=== PATIENT | female | born 1970 | race Caucasian/White ===

== ENCOUNTER → 2022-03-23 | Outpatient (CLI) | payer OTHER ==
[2022-03-23 10:20] LABS: African American GFR (CKD) >90 (>60 ml/min/1.73 sqM); Blood Urea Nitrogen 12 mg/dL (7-17); Non-African American GFR(CKD) >90 (>60 ml/min/1.73 sqM)
--- NOTE | 2022-03-23 14:15 | CT ---
EXAMINATION TYPE: CT abdomen pelvis w con DATE OF EXAM: 03/23/2022 COMPARISON: None HISTORY: right sided abdominal pain CT DLP: 1990.1 mGycm Automated exposure control for dose reduction was used. TECHNIQUE: Helical acquisition of images was performed from the lung bases through the pelvis. CONTRAST: Performed without Oral Contrast and with IV Contrast, patient injected with 100 mL of Isovue 300. FINDINGS: Visualized lung bases are clear. The gallbladder is normal and there are no gallstones, wall thickening, pericholecystic fluid or dist ention. There is no biliary ductal dilatation. There is no focal mass or organomegaly involving the liver, pancreas, spleen or adrenal glands. There is diffuse fatty infiltration of the liver. . The caliber of the abdominal aorta is normal and there is no retroperitoneal adenopathy or hemorrhage . The kidneys perfuse symmetrically and rapidly and there is no solid renal mass or hydronephrosis. The bowel loops are normal in caliber and there is no evidence of dilatation or obstruction. No infla mmatory changes are identified in the bowel wall or mesentery. The appendix is identified and is norm al. There is no free intraperitoneal air or fluid. There is a small periumbilical hernia containing o nly fat. There is no pelvic mass or adenopathy. The uterus is bulky and there are scattered calcifications wit hin it consistent with a fibroid uterus. No adnexal masses are seen and there is no pelvic adenopathy . The osseous structures are intact. IMPRESSION: 1. Fibroid uterus. 2. Fatty infiltration of the liver. 3. No acute changes within the abdomen or pelvis. 4. Small periumbilical hernia containing only fat.
== END | disposition home or self-care (01) ==
LOC: RADCTMAIN 09:10
PROVIDERS: ATTEND Family Medicine
DX: D25.9 Leiomyoma of uterus, unspecified (principal); K76.0 Fatty (change of) liver, not elsewhere classified; K42.9 Umbilical hernia without obstruction or gangrene
CPT/HCPCS: 82565; 84520; 74177; 36415; Q9967

== ENCOUNTER → 2022-04-10 | Outpatient (CLI) | payer OTHER ==
--- NOTE | 2022-04-11 10:28 | MM ---
Reason for Exam: Screening (asymptomatic). Last mammogram was performed 9 year(s) and 2 month(s) ago. Patient History: Menarche at age 11. First Full-Term at age 33. Late child-bearing (after 30). Postmenopausal. Stereotactic Core Biopsy on the Right side. Risk Values: Priya 5 year model risk: 1.9%. NCI Lifetime model risk: 13.3%. Prior Study Comparison: 01/14/2006 Bilateral Screening Mammogram, [facility]. 02/09/2013 Bilateral Diagnostic Mammogram, [facility]. Tissue Density: The breast tissue is heterogeneously dense. This may lower the sensitivity of mammography. Findings: Analyzed By CAD. Biopsy clip right breast redemonstrated. Increasing grouped faint regional calcifications in the right breast upper outer aspect noted. Focal asymmetry in the middle depth upper aspect left breast were prominent from prior. Overall Assessment: Incomplete: need additional imaging evaluation, BI-RAD 0 Management: Diagnostic Mammogram of the right breast. Diagnostic Breast Ultrasound of the left breast. Further workup both breasts now. Targeted ultrasound left breast upper-outer quadrant. Additional spot identification and true lateral view right breast. Electronically signed and approved by: Lico Hi M.D.
== END | disposition home or self-care (01) ==
LOC: RADMAMWWP 08:39
PROVIDERS: ATTEND Family Medicine
DX: Z12.31 Encounter for screening mammogram for malignant neoplasm of breast (principal); Z78.0 Asymptomatic menopausal state
CPT/HCPCS: 77067

== ENCOUNTER → 2022-04-19 | Outpatient (CLI) | payer OTHER ==
--- NOTE | 2022-04-19 11:50 | USB ---
Reason for Exam: Additional evaluation requested from abnormal screening. Last screening mammogram was performed less than 1 month ago. Patient History: Menarche at age 11. First Full-Term at age 33. Late child-bearing (after 30). Postmenopausal. Stereotactic Core Biopsy on the Right side. Risk Values: Priya 5 year model risk: 1.9%. NCI Lifetime model risk: 13.3%. Prior Study Comparison: 01/14/2006 Bilateral Screening Mammogram, [facility]. 02/09/2013 Bilateral Diagnostic Mammogram, [facility]. 04/10/2022 Bilateral MG screening mammo w CAD, [facility]. Tissue Density: Right: The breast tissue is extremely dense which could obscure a lesion on mammography. Findings: Analyzed By CAD. Mammogram Focal asymmetries in the upper outer aspect right breast. Multiple punctate calcifications are better visualized on the current examination. These regional calcifications may be benign, short-term follow-up is recommended. No discrete suspicious underlying spiculated or lobular masses evident. Core marker is evident within the right breast. There is extremely dense tissue through the left breast in an asymmetric pattern with the right. Technique: Method: Targeted. Findings: The upper outer quadrant of the left breast, the axilla of the left breast and the retroareolar of the left breast were scanned. Small cluster of cysts may be present at the 2:00 position. Discrete mass is not identified. No suspicious solid lesion. Overall Assessment: Probably benign, BI-RAD 3 Assessment: MG 3D work up w/cad RT - Right: Probably benign, BI-RAD 3. US breast workup limited LT - Left: Probably benign, BI-RAD 3. Management: Diagnostic Mammogram of both breasts in 6 months. Diagnostic Breast Ultrasound of the left breast in 6 months. A clinical breast exam by your physician is recommended on an annual basis and results should be correlated with mammographic findings. Results were given to the patient verbally at the time of exam. Electronically signed and approved by: Avila Fishman D.O. Radiologis
== END | disposition home or self-care (01) ==
LOC: RADMAMWWP 10:11
PROVIDERS: ATTEND Family Medicine
DX: R92.1 Mammographic calcification found on diagnostic imaging of breast (principal); N60.02 Solitary cyst of left breast; Z78.0 Asymptomatic menopausal state
CPT/HCPCS: 77065; 76642; G0279; 77061

== ENCOUNTER → 2023-03-19 | Outpatient (CLI) | payer OTHER ==
--- NOTE | 2023-03-19 09:21 | MM ---
Reason for Exam: Follow-up at short interval from prior study. Last screening mammogram was performed 11 month(s) ago. Patient History: Menarche at age 11. First Full-Term at age 33. Late child-bearing (after 30). Postmenopausal. Stereotactic Core Biopsy on the Right side. Risk Values: Priya 5 year model risk: 1.9%. NCI Lifetime model risk: 13.1%. Prior Study Comparison: 02/09/2013 Bilateral Diagnostic Mammogram, [facility]. 04/10/2022 Bilateral MG screening mammo w CAD, [facility]. 04/19/2022 Right MG 3D work up w/cad RT, [facility]. 04/19/2022 Left US breast workup limited , [facility]. Tissue Density: The breast tissue is heterogeneously dense. This may lower the sensitivity of mammography. Findings: Analyzed By CAD. Microclip right breast from prior biopsy. Multiple bilateral asymmetric densities and coped and regional calcifications remain unchanged for nearly a year. Additional nodularity in the left breast remains unchanged for nearly a year. One of the areas of nodularity laterally on the left corresponds to a mole. Additional one-year follow-up is recommended. No significant change from last year. Overall Assessment: Incomplete: need additional imaging evaluation, BI-RAD 0 Management: Diagnostic Breast Ultrasound of the left breast. Electronically signed and approved by: Hamida Simon M.D. Radiologist
--- NOTE | 2023-03-19 09:47 | USB ---
Reason for Exam: Follow-up at short interval from prior study. Patient History: Menarche at age 11. First Full-Term at age 33. Late child-bearing (after 30). Postmenopausal. Stereotactic Core Biopsy on the Right side. Risk Values: Priya 5 year model risk: 1.9%. NCI Lifetime model risk: 13.1%. Technique: Method: Whole Breast Handheld. Prior Study Comparison: 02/09/2013 Bilateral Diagnostic Mammogram, [facility]. 04/10/2022 Bilateral MG screening mammo w CAD, [facility]. 04/19/2022 Right MG 3D work up w/cad RT, [facility]. Findings: The whole breast of the left breast, the axilla of the left breast and the retroareolar of the left breast were scanned. A complete US of all four quadrants of the breast common axilla, and retro-areolar region were reviewed. The previous 2:00, 4 mm lesion is no longer identified, probably a cyst that has resolved. No solid or cystic masses are identified. Some mild, benign duct ectasia is noted. Overall Assessment: Probably benign, BI-RAD 3 Management: Diagnostic Mammogram of both breasts in 1 year. Diagnostic follow-up at the time of the patient's next annual exam given nearly one year of stability of the bilateral mammographic findings. Patient should continue monthly self breast exams. These result should not preclude additional follow-up of suspicious palpable abnormalities. Results were given to the patient verbally at the time of exam. Electronically signed and approved by: Hamida Simon M.D. Radiologist
== END | disposition home or self-care (01) ==
LOC: RADMAMWWP 08:51
PROVIDERS: ATTEND Family Medicine
DX: N64.89 Other specified disorders of breast (principal); Z78.0 Asymptomatic menopausal state
CPT/HCPCS: 77066; 76641; G0279; 77062

== ENCOUNTER → 2023-12-11 | Outpatient (CLI) | payer OTHER | END | disposition home or self-care (01) | LOC: LABWHC1 16:05 | PROVIDERS: ATTEND Surgery Plastic and Reconstructive Surgery | DX: E66.01 Morbid (severe) obesity due to excess calories (principal); E89.1 Postprocedural hypoinsulinemia; D50.8 Other iron deficiency anemias; K91.2 Postsurgical malabsorption, not elsewhere classified; E44.0 Moderate protein-calorie malnutrition; E44.1 Mild protein-calorie malnutrition; E45 Retarded development following protein-calorie malnutrition; E55.9 Vitamin D deficiency, unspecified; K74.1 Hepatic sclerosis; N19 Unspecified kidney failure; T56.894A Toxic effect of other metals, undetermined, initial encounter; K50.90 Crohn's disease, unspecified, without complications ==

== ENCOUNTER → 2023-12-16 | Outpatient (CLI) | payer OTHER ==
[2023-12-16 14:51] LABS: INR 0.9 (<1.2); Partial Thromboplastin Time 23.3 sec (22.0-30.0); Prothrombin Time 9.9 sec (10.0-12.5)
[2023-12-16 18:58] LABS: HCT 43.1 % (37.2-46.3); HGB 13.7 g/dL (12.0-15.0); MCH 26.7 pg (27.0-32.0); MCHC 31.8 g/dL (32.0-37.0); Mean Platelet Volume 10.6 FL (9.5-12.2); NRBC Per 100 WBC 0 X 10*3/uL (0.00-0.01); Platelet Count 343 X 10*3/uL (140-440); RBC 5.13 X 10*6/uL (4.10-5.20); RDW 13.8 % (11.5-14.5); WBC 10.06 X 10*3/uL (4.50-10.00)
[2023-12-16 19:57] LABS: Chol/HDL Ratio 3.77 Ratio; Magnesium 1.8 mg/dL (1.5-2.4); Phosphorus 3.7 mg/dL (2.4-5.1)
[2023-12-16 19:58] LABS: % Iron Saturation 20.16 (12.00-45.00); ALT 29 U/L (8-44); AST 23 U/L (13-35); Albumin 4.2 g/dL (3.8-4.9); Albumin/Globulin Ratio 1.45 Ratio (1.60-3.17); Alkaline Phosphatase 166 U/L (41-126); BUN/Creat Ratio 16.83 Ratio (12.00-20.00); Blood Urea Nitrogen 10.1 mg/dL (9.0-27.0); Calcium 9.7 mg/dL (8.7-10.3); Carbon Dioxide 27.4 mmol/L (21.6-31.8); Chloride 100 mmol/L (96-109); Ferritin 75.2 ng/mL (10.0-291.0); Globulin 2.9 g/dL (1.6-3.3); Glucose 235 mg/dL (70-110); Iron 76 UG/DL (50-170); LDL Cholesterol,Calculated 55.9 mg/dL (0.0-131.0); Potassium 4.6 mmol/L (3.5-5.5); Sodium 139 mmol/L (135-145); Total Bilirubin 0.4 mg/dL (0.3-1.2); Total Iron Binding Capacity 377 UG/DL (228-460); Total Protein 7.1 g/dL (6.2-8.2)
[2023-12-16 20:12] LABS: Prealbumin 22.5 mg/dL (18.0-42.0)
[2023-12-17 11:33] LABS: Zinc, Serum 85 ug/dL (60-130)
[2023-12-18 11:53] LABS: Vit B1(Thiamine) 94 ug/L (38-122)
[2023-12-18 11:59] LABS: Vitamin A 47 ug/dL (38-106)
[2023-12-19 05:17] LABS: Anabasine Urine <2.0 ng/mL (<2.0)
[2023-12-19 18:56] LABS: Selenium 159 mcg/L (63-160)
== END | disposition home or self-care (01) ==
LOC: LABWHC1 13:28
PROVIDERS: ATTEND Surgery Plastic and Reconstructive Surgery
DX: E66.01 Morbid (severe) obesity due to excess calories (principal); E89.1 Postprocedural hypoinsulinemia; D50.8 Other iron deficiency anemias; K91.2 Postsurgical malabsorption, not elsewhere classified; E44.0 Moderate protein-calorie malnutrition; E44.1 Mild protein-calorie malnutrition; E45 Retarded development following protein-calorie malnutrition; E55.9 Vitamin D deficiency, unspecified; K74.1 Hepatic sclerosis; N19 Unspecified kidney failure; T56.894A Toxic effect of other metals, undetermined, initial encounter; K50.90 Crohn's disease, unspecified, without complications
CPT/HCPCS: 84255; 84134; 84425; 80061; 80053; 82607; 82728; 82525; 82746; 83540; 83550; 83735; 84100; 84443; 84590; 84630; 85027; 85610; 85730; 82306; 83970; 83036; 80307; 93005; 36415; G0480; 80323

== ENCOUNTER 2024-02-03 06:33 | Day surgery (SDC) | payer OTHER ==
[2024-01-29 11:55] VITALS: BMI 45.4
--- NOTE | 2024-02-03 05:47 | P.GSHP ---
History of Present Illness H&P Date: 02/03/24 CHIEF COMPLAINT: GERD HISTORY OF PRESENT ILLNESS: The patient is a 54-year-old female who presents reports gastroesophageal reflux disease. Upper endoscopy was offered for further evaluation and management. PAST MEDICAL HISTORY: Please see list. PAST SURGICAL HISTORY: Please see list. MEDICATIONS: Please see list. ALLERGIES: Please see list. SOCIAL HISTORY: No illicit drug use FAMILY HISTORY: No reports of Crohn disease or ulcerative colitis. REVIEW OF ORGAN SYSTEMS: CONSTITUTIONAL: No reports of fevers or chills. GI: Denies any blood in stools or constipation. PHYSICAL EXAM: VITAL SIGNS: Stable GENERAL: Well-developed and pleasant in no acute distress. HEENT: No scleral icterus. Extraocular movements grossly intact. Moist buccal mucosa. NECK: Supple without lymphadenopathy. CHEST: Unlabored respirations. Equal bilateral excursions. CARDIOVASCULAR: Regular rate and rhythm. Distal 2+ pulses. ABDOMEN: Soft, nondistended. MUSCULOSKELETAL: No clubbing, cyanosis, or edema. ASSESSMENT: 1. Gastroesophageal reflux disease PLAN: 1. Recommend proceeding with an upper endoscopy Past Medical History Past Medical History: Asthma, Diabetes Mellitus, Hyperlipidemia, Hypertension Additional Past Medical History / Comment(s): "Current toothache, cannot get into Dentist until April, saw PCP and started on Cephalexin for 5 days." No Inhaler needed for Asthma. Preparing for Bariatric surgery. Hx kidney stones. History of Any Multi-Drug Resistant Organisms: None Reported Additional Past Surgical History / Comment(s): Lithotripsy. Past Anesthesia/Blood Transfusion Reactions: No Reported Reaction Smoking Status: Never smoker - Past Family History Father Family Medical History: Cancer Medications and Allergies Home Medications Medication Instructions Recorded Confirmed Type lisinopriL [Zestril] 10 mg PO HS 09/26/17 01/29/24 History Dulaglutide [Trulicity] 4.5 mg SQ Q7D 12/11/23 01/29/24 History Pantoprazole [Protonix] 40 mg PO HS 12/11/23 01/29/24 History Ergocalciferol [Vitamin D2 (1250 50,000 unit PO TH 12/24/23 01/29/24 History Mcg = 89509 Iu)] Cephalexin [Keflex] 500 mg PO QID 01/29/24 01/29/24 History Dulaglutide [Trulicity] 1.5 mg SQ WE 01/29/24 01/29/24 History Ibuprofen [Advil] 400 mg PO DIRECTED PRN 01/29/24 01/29/24 History Insulin Glargine [Lantus Vial] 80 unit SQ QAM 01/29/24 01/29/24 History Allergies Allergy/AdvReac Type Severity Reaction Status Date / Time amoxicillin Allergy Mild Rash/Hives Verified 01/29/24 11:01
[2024-02-03] MEDS: LACTATED RINGERS 1,000 ML IV ONE (06:53)
[2024-02-03] MEDS ORDERED: LACTATED RINGERS 1,000 ML IV SCH (07:00)
[2024-02-03 07:22] VITALS: RESP 16; TEMP 98
[2024-02-03] MEDS: INSULIN ASPART (NovoLOG) 100 UNIT/ML VIAL SQ ONE (07:33)
[2024-02-03] MEDS ORDERED: LIDOCAINE 1% INJ 10MG/ML (20 ML MDV) ONE (07:34)
[2024-02-03] MEDS ORDERED: PROPOFOL 10 MG/ML 20 ML VIAL IV ONE (07:34)
[2024-02-03 07:45] LABS: Glucose,Whole Blood 224 mg/dL (70-110)
[2024-02-03 08:02] LABS: Glucose,Whole Blood 221 mg/dL (70-110)
--- NOTE | 2024-02-03 08:06 | P.PCN ---
Date of Procedure: 02/03/24 Description of Procedure: PREOPERATIVE DIAGNOSIS: Gastroesophageal reflux disease. Morbid obesity. POSTOPERATIVE DIAGNOSIS: Gastroesophageal reflux disease. Morbid obesity. Gastritis. Diaphragmatic hiatal hernia Duodenitis Gastric polyps OPERATION: Esophagogastroduodenoscopy with biopsies along esophagus, antrum and duodenum SURGEON: Alexa Najera MD ANESTHESIA: MAC. INDICATIONS: The patient is [id number] female who presents with reflux disease. Benefits and risks of the procedure were described. Informed consent was obtained. DESCRIPTION: The patient was brought into the endoscopy suite and laid in the left lateral decubitus position. An Olympus gastroscope was passed along the posterior oropharynx down to the distal esophagus where the squamocolumnar junction was encountered at 38 cm from the incisors. The stomach was entered and no bile reflux was found. Additional findings are listed below. Biopsies with cold forceps were obtained of the antrum. The first through third portion of the duodenum was examined. Retroflexion of the scope confirmed Hill grade 3 lower esophageal valve. The squamocolumnar junction demonstrated LA grade B erosive esophagitis. The stomach was desufflated. The patient tolerated the procedure well. FINDINGS: Squamocolumnar junction 38 cm from the incisors. Diaphragmatic hiatus at 40 cm. Hiatal hernia, 2 cm Hill grade 1 lower esophageal valve. LA grade B erosive esophagitis. Biopsies obtained of the duodenum. Duodenitis identified. Presence of hyperplastic gastric polyps, 3 mm, few, benign at gastric cardia Chronic gastritis with biopsies obtained. RECOMMENDATIONS: Upper endoscopy as needed. Plan - Discharge Summary Discharge Rx Participant: No New Discharge Prescriptions: Continue lisinopriL [Zestril] 10 mg PO HS Dulaglutide [Trulicity] 4.5 mg SQ Q7D Ergocalciferol [Vitamin D2 (1250 Mcg = 26615 Iu)] 50,000 unit PO TH Dulaglutide [Trulicity] 1.5 mg SQ WE Insulin Glargine [Lantus Vial] 80 unit SQ QAM Pantoprazole [Protonix] 40 mg PO HS Cephalexin [Keflex] 500 mg PO QID Ibuprofen [Advil] 400 mg PO DIRECTED PRN PRN Reason: Headache/Pain Discharge Medication List lisinopriL [Zestril] 10 mg PO HS 09/26/17 [History] Dulaglutide [Trulicity] 4.5 mg SQ Q7D 12/11/23 [History] Pantoprazole [Protonix] 40 mg PO HS 12/11/23 [History] Ergocalciferol [Vitamin D2 (1250 Mcg = 86748 Iu)] 50,000 unit PO TH 12/24/23 [History] Cephalexin [Keflex] 500 mg PO QID 01/29/24 [History] Dulaglutide [Trulicity] 1.5 mg SQ WE 01/29/24 [History] Ibuprofen [Advil] 400 mg PO DIRECTED PRN 01/29/24 [History] Insulin Glargine [Lantus Vial] 80 unit SQ QAM 01/29/24 [History] Follow up [facility]ment(s[facility] [place] [facility] - [facility] Patient Instructions/Handouts: Hiatal Hernia (DC), GERD (Gastroesophageal Reflux Disease) (DC), Duodenitis (DC) Discharge Disposition: HOME SELF-CARE
[2024-02-03 08:43] VITALS: BP 126/70; PULSE 74
== END 2024-02-03 08:30 | disposition home or self-care (01) ==
LOC: ORWHC2ENDO 06:33
PROVIDERS: ATTEND Surgery Plastic and Reconstructive Surgery
DX: K21.00 Gastro-esophageal reflux disease with esophagitis, without bleeding (principal); K29.50 Unspecified chronic gastritis without bleeding; E66.01 Morbid (severe) obesity due to excess calories; K44.9 Diaphragmatic hernia without obstruction or gangrene; K29.80 Duodenitis without bleeding; N28.9 Disorder of kidney and ureter, unspecified; K31.7 Polyp of stomach and duodenum; J45.909 Unspecified asthma, uncomplicated; E78.5 Hyperlipidemia, unspecified; I10 Essential (primary) hypertension; E11.9 Type 2 diabetes mellitus without complications; Z87.442 Personal history of urinary calculi; Z79.4 Long term (current) use of insulin; Z79.899 Other long term (current) drug therapy; Z88.0 Allergy status to penicillin; Z98.890 Other specified postprocedural states; Z68.42 Body mass index [BMI] 45.0-49.9, adult
CPT/HCPCS: 43239; J2001; J2704; 88305

== ENCOUNTER → 2024-02-19 | Outpatient (CLI) | payer OTHER ==
--- NOTE | 2024-02-19 14:32 | P.BASOAP ---
Subjective Progress Note Date: 02/19/24 DATE OF SERVICE: 02/19/24 CHIEF COMPLAINT: Morbid obesity HISTORY OF PRESENT ILLNESS: Kimberly Vela is a 54-year-old female who comes with lifelong morbid obesity. She presents with comorbidities related to obesity including hypertensive heart disease, insulin-dependent diabetes type 2. She reports her blood sugars were high over 200+. She reports epigastric abdominal pain. She reports having recent cardiac risk assessment. She reports running out of her insulin where her blood sugars were uncontrolled for over a month. She reports blood sugars now improved as she now has her insulin. She is looking to do sleeve gastrectomy. At height of 5 feet 4 inches, her ideal body weight is 144 pounds. Her highest weight 265 pounds, body mass index 45.6. She comes in 260 pounds. She has lost 5 pounds in 2 months. Her body mass index is 44.6. She is 116 pounds overweight. PAST MEDICAL HISTORY: 1. Morbid obesity due to excess calories 2. Body mass index of 45.6 3. Hypertensive heart disease 4. Diabetes type 2, insulin-dependent 5. Gastroesophageal reflux disease 6. Osteoarthritis bilateral knee 7. Osteoarthritis bilateral hip 8. Asthma 9. Hyperlipidemia 10. Kidney stones PAST SURGICAL HISTORY: 1. Lithotripsy HOME MEDICATIONS: Home Medications Medication Instructions Recorded Confirmed lisinopriL [Zestril] 10 mg PO HS 09/26/17 02/03/24 Dulaglutide [Trulicity] 4.5 mg SQ Q7D 12/11/23 02/03/24 Pantoprazole [Protonix] 40 mg PO HS 12/11/23 02/03/24 Ergocalciferol [Vitamin D2 (1250 50,000 unit PO TH 12/24/23 02/03/24 Mcg = 23873 Iu)] Cephalexin [Keflex] 500 mg PO QID 01/29/24 02/03/24 Dulaglutide [Trulicity] 1.5 mg SQ WE 01/29/24 02/03/24 Ibuprofen [Advil] 400 mg PO DIRECTED PRN 01/29/24 02/03/24 Insulin Glargine [Lantus Vial] 80 unit SQ QAM 01/29/24 02/03/24 ALLERGIES: Allergies Allergy/AdvReac Type Severity Reaction Status Date / Time amoxicillin Allergy Mild Rash/Hives Verified 02/03/24 07:13 SOCIAL HISTORY: No past tobacco use. FAMILY HISTORY: No family history of ulcerative colitis disease or Crohn's disease. Family history of morbid obesity. No lupus in the family. No reports of stomach or esophageal cancer. REVIEW OF ORGAN SYSTEMS: CONSTITUTIONAL: At height of 5 feet 4 inches, her ideal body weight is 144 pounds. Her highest weight 265 pounds, body mass index 44.6. HEENT: Denies any active troubles with vision or hearing. ENDOCRINE: Has diabetes. No hypothyroidism. CARDIOVASCULAR: Denies past reports of palpitations or heart attacks or chest pain. Has hypertensive heart disease. RESPIRATORY: Has asthma. Has chronic obstructive pulmonary disease. GASTROINTESTINAL: Denies any bright red blood per rectum. No diarrhea. No constipation. Has gastroesophageal reflux disease. GENITOURINARY: Denies bladder urgency. No recent blood in urine MUSCULOSKELETAL: Has lower back pain and joint pain. Has osteoarthritis of the knees. NEURO: No headaches. No seizure disorders. PSYCH: Denies depression. No suicidal ideation. RHEUMATOLOGIC: No lupus. No rheumatoid arthritis. HEMATOLOGIC: Denies any abnormal bleeding or bruising. SKIN: No rash. No skin cancer. PHYSICAL EXAM: VITAL SIGNS: Height 5 foot 4 inches, weight 260 pounds. BMI 44.6 Vital Signs Temp 98.1 F 02/19/24 14:10 Pulse 81 02/19/24 14:10 Resp 16 02/19/24 14:10 BP 124/69 02/19/24 14:10 Pulse Ox FiO2 Intake & Output 02/19/24 02/19/24 02/20/24 06:59 18:59 06:59 Weight 117.934 kg GENERAL: Well-developed in no acute distress. HEENT: No scleral icterus. Extraocular movements grossly intact. Hears conversational speech. No nasal drainage. NECK: Supple without lymphadenopathy. CHEST: Nonlabored respirations with equal bilateral excursions. CARDIOVASCULAR: Regular rate and regular rhythm. Distal 2+ pulses. ABDOMEN: Obese, soft, nontender, nondistended. MUSCULOSKELETAL: No clubbing, cyanosis. NEURO: No focal or lateralizing signs. Cranial nerves 2 through 12 grossly within normal limits. PSYCH: Appropriate affect. Alert and oriented to person, place and time. SKIN: Good skin turgor. Well perfused. LABS: Reviewed. WBC elevated, leukocytosis. Glucose over 235, hyperglycemia. Hemoglobin A1c elevated at 8.2% triglycerides elevated. Vitamin D low. EKG: Borderline EKG, left atrial enlargement. EGD FINDINGS: Squamocolumnar junction 38 cm from the incisors. Diaphragmatic hiatus at 40 cm. Hiatal hernia, 2 cm Hill grade 1 lower esophageal valve. LA grade B erosive esophagitis. Biopsies obtained of the duodenum. Duodenitis identified. Presence of hyperplastic gastric polyps, 3 mm, few, benign at gastric cardia Chronic gastritis with biopsies obtained. REPORTS: Cardiology risk report obtained Final Pathologic Diagnosis A. DUODENUM, BIOPSY: Benign small bowel mucosa with intact villous architecture, negative for histopathologic abnormality. B. GASTRIC ANTRUM, BIOPSY: Chronic gastritis. Helicobacter pylori organisms are not identified on routine H+E sections. C. ESOPHAGUS: Benign squamous mucosa without histopathologic abnormality. ASSESSMENT: 1. Morbid obesity due to excess calories 2. Body mass index of 44.6 3. Hypertensive heart disease 4. Diabetes type 2, insulin-dependent with hyperglycemia 5. Gastroesophageal reflux disease 6. Osteoarthritis bilateral knee 7. Osteoarthritis bilateral hip 8. Asthma 9. Hyperlipidemia 10. Kidney stones 11. Vitamin D deficiency 12. Leukocytosis 13. Left atrial enlargement. 14. Diaphragmatic hiatal hernia 15. Chronic gastritis PLAN: 1. She reports no moderate epigastric symptoms or severe reflux disease. She is continuing to pursue sleeve gastrectomy with risk of worsening reflux disease. 2. Recommend recheck of hemoglobin A1c including adjusting vitamin D from 50,000 units weekly to 10,000 units daily for optimal treatment for severe vitamin D deficiency 3. WBCs elevated with leukocytosis. Recommend repeat CBC. 4. Continuing with surgical invention with sleeve gastrectomy and elevated hemoglobin A1c puts her at elevated risk for complications. Objective - Vital Signs Vital signs: Vital Signs Temp 98.1 F 02/19/24 14:10 Pulse 81 02/19/24 14:10 Resp 16 02/19/24 14:10 BP 124/69 02/19/24 14:10 Pulse Ox FiO2 Intake & Output 02/18/24 02/19/24 02/19/24 18:59 06:59 18:59 Weight 117.934 kg Assessment/Plan Plan: Date: 02/19/24 Initial Weight: 117.48 kg Initial BMI: 44.4 Current Weight: 117.934 kg Current BMI: 44.6 Type of Surgery: Total Volume in Band: Previous Volume: Volume Removed: Volume Added: Band Size:
[2024-02-19 14:42] VITALS: BP 124/69; PULSE 81; RESP 16; TEMP 98.1; BMI 44.6
== END ==
LOC: BARWHC3 12:55
PROVIDERS: ATTEND Surgery Plastic and Reconstructive Surgery
DX: E66.01 Morbid (severe) obesity due to excess calories (principal); I11.9 Hypertensive heart disease without heart failure; E11.65 Type 2 diabetes mellitus with hyperglycemia; K21.9 Gastro-esophageal reflux disease without esophagitis; M17.0 Bilateral primary osteoarthritis of knee; M16.0 Bilateral primary osteoarthritis of hip; J45.909 Unspecified asthma, uncomplicated; E78.5 Hyperlipidemia, unspecified; E55.9 Vitamin D deficiency, unspecified; N20.0 Calculus of kidney; D72.829 Elevated white blood cell count, unspecified; I42.2 Other hypertrophic cardiomyopathy; K44.9 Diaphragmatic hernia without obstruction or gangrene; K29.50 Unspecified chronic gastritis without bleeding; Z68.41 Body mass index [BMI] 40.0-44.9, adult; Z88.0 Allergy status to penicillin; Z79.85 Long-term (current) use of injectable non-insulin antidiabetic drugs; Z79.899 Other long term (current) drug therapy; Z79.4 Long term (current) use of insulin
CPT/HCPCS: 99211

== ENCOUNTER → 2024-03-02 | Outpatient (CLI) | payer OTHER ==
[2024-03-02 15:24] VITALS: BMI 45.2
== END ==
LOC: BARWHC3 12:52
PROVIDERS: ATTEND Surgery Plastic and Reconstructive Surgery
DX: E66.01 Morbid (severe) obesity due to excess calories (principal); E11.69 Type 2 diabetes mellitus with other specified complication; E55.9 Vitamin D deficiency, unspecified; Z68.42 Body mass index [BMI] 45.0-49.9, adult; Z88.0 Allergy status to penicillin; Z79.4 Long term (current) use of insulin; Z79.85 Long-term (current) use of injectable non-insulin antidiabetic drugs; Z71.3 Dietary counseling and surveillance
CPT/HCPCS: 82306; 83036; 97804

== ENCOUNTER → 2024-06-10 | Outpatient (CLI) | payer OTHER | END | disposition home or self-care (01) | LOC: LABWHC1 12:23 | PROVIDERS: ATTEND Internal Medicine Nephrology | DX: Z01.812 Encounter for preprocedural laboratory examination (principal) | CPT/HCPCS: 36415; 83036 ==